=== PATIENT | female | born 1995 ===

== ENCOUNTER → 2018-09-24 02:55 | Observation (INO) ==
[2018-09-24 00:09] LABS: Bilirubin,Urine Negative (Negative); Blood,Urine Negative (Negative); Clarity,Urine Cloudy (Clear); Color,Urine Yellow (Yellow); Glucose,Urine (UA) Normal (Normal); Ketones,Urine Negative (Negative); Leukocyte Esterase,Urine Negative (Negative); Nitrite,Urine Negative (Negative); Protein,Urine Negative (Neg-Trace); Specific Gravity,Urine 1.011 (1.010-1.025); Urobilinogen,Urine Normal (Normal)
[2018-09-24 00:11] LABS: Bacteria,Urine Few per hpf (None-Few); Hyaline Casts,Urine None Seen per lpf (None-Few); RBC,Urine 0-3 per hpf (0-3); Squamous Epithelial Cell,Urine Many per lpf (None-Few); WBC,Urine 0-3 per hpf (0-3)
[2018-09-24 00:13] LABS: Amphetamine Screen,Urine Negative ng/mL (Cutoff=1000); Barbiturate Screen,Urine Negative ng/mL (Cutoff=200); Benzodiazepines Screen,Urine Negative ng/mL (Cutoff=200); Cannabinoid Screen,Urine Negative ng/mL (Cutoff = 50); Cocaine Screen,Urine Negative ng/mL (Cutoff= 300); Opiate Screen,Urine Negative ng/mL (Cutoff=300); Phencyclidine Screen,Urine Negative ng/mL (Cutoff=25)
[~2018-09-24 02:55] MED LIST: hydrOXYzine pamoate 25 MG CAPSULE PO ONE
--- NOTE | 2018-10-01 07:53 | Discharge Summary ---
Date of Encounter: 09/24/18 Time of Encounter: 02:00 - Discharge Diagnosis (1) 36 weeks gestation of Priority: Primary Status: Acute Comments: Admit to observation for labor evaluation (2) NST (non-stress test) reactive Priority: Secondary Status: Acute Comments: FHR 135 bpm, moderate variability, +15 x 15 accelerations, no decelerations. (3) False labor Priority: Secondary Status: Acute Comments: Irregular contractions noted, no cervical change in greater than 2 hours. - Discharge Medications Prescriptions: No Action Aspirin [Lo-Dose Aspirin EC] 81 mg PO DAILY Vits96/Iron Fum/Folic [ Tablet] 1 each PO DAILY Home Medications: Aspirin [Lo-Dose Aspirin EC] 81 mg PO DAILY 09/23/18 [History] Vits96/Iron Fum/Folic [ Tablet] 1 each PO DAILY 09/23/18 [History] Allergies/Adverse Reactions: Allergy/AdvReac Type Severity Reaction Status Date / Time No Known Allergies Allergy Verified 09/23/18 23:36 Data Procedures and tests throughout hospitalization: Laboratory Tests 09/23/18 09/23/18 23:48 23:48 Urine Color Yellow Urine Clarity Cloudy A Urine pH 7.0 Ur Specific Woodman 1.011 Urine Protein Negative Urine Glucose (UA) Normal Urine Ketones Negative Urine Blood Negative Urine Nitrite Negative Urine Bilirubin Negative Urine Urobilinogen Normal Ur Leukocyte Esterase Negative Urine Microscopic RBC 0-3 Urine Microscopic WBC 0-3 Ur Squamous Epith Cells Many H Urine Bacteria Few Hyaline Casts None Seen Urine Opiates Screen Negative Ur Buprenorphine Scrn Negative Ur Barbiturates Screen Negative Ur Phencyclidine Scrn Negative Ur Amphetamines Screen Negative U Benzodiazepines Scrn Negative Urine Cocaine Screen Negative U Marijuana (THC) Screen Negative Ur Drug Screen Interp See Below Date of admission: 09/23/18 23:29 Primary care physician: Lilo Bundy, Discharging clinician: Emili Sam Anticipated date of discharge: 09/24/18 - Patient Status Disposition: Home, Self-Care Condition: Good Functional capacity at discharge: independent ambulation Overall status at discharge: patient is progressing back to baseline - Discharge Instructions Follow Up With: Lilo Bundy CNP [Primary Care Provider] - Additional Instructions: Keep regular scheduled OB appointment. LABOR AND DELIVERY DISCHARGE INSTRUCTIONS Signs and Symptoms to be Reported to your Doctor Immediately: * Sudden gush, continuous or intermittent lead of fluid from vagina (note the time of gush and color of fluid) * Onset of bright red vaginal bleeding with or without pain (if you had a vaginal exam during this visit you may notice some dark red spotting. This is normal.) * Lower abdominal cramping or backache that is premenstrual-like feeling. * More than 6 contractions in one hour. * Burning during urination, having to urinate more frequently or pain in your mid-back. * A change in the baby's activity. This could be an increase or decrease in activity. * Severe headache which does not go away with tylenol. * Sudden swelling in the face, hands, arms and/or legs. * Upper abdominal pain - sometimes associated with heartburn or nausea and is not relieved by Maalox, Mylanta or Tums. * Dizziness or blurred vision or visual disturbances (seeing stars/lights). * Kick Counts One hour after a meal, lay down on one side in a quiet place. Count the number of maria eugenia the baby moves during an hour. If less than 6 movements, notify your physician. Diet: *Force fluids - 8-10 tall glasses of fluid per day. May include popsicles and jello. 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 She does report positive movement, denies vaginal bleeding and leakage of fluid. She was found to be ricky irregularly throughout her stay. Fetus has a reactive strip. Cervix on arrival was 1-2 cm and she had no warp changer greater than 2 hours. She has an appointment to see her OB care provider, Dr. Mujica, this morning at 9:15. Patient is instructed to keep that appointment and return for any further signs of labor. Time Attestation: Total time spent providing and/or coordinating discharge services: Time Spent: Less than 30 minutes Exam - Constitutional General appearance IM: A&O X 3, no acute distress - Respiratory Respiratory exam: Absent: respiratory distress - Cardiovascular Cardiovascular exam IM: Absent: irregular rhythm - GI/Abdominal GI/Abdominal exam IM: normal bowel sounds - Rectal Rectal exam: deferred - Extremities Exam Extremities exam IM: Absent: calf tenderness - Neurological Exam Neurological exam: alert, normal gait, oriented X3 - VTE Reasons for not Prescribing Prophylaxis: Treatment not Indicated - Low risk for VTE
== END | disposition home or self-care (01) ==
LOC: 1NENULAB
PROVIDERS: ADMIT Registered Nurse; ATTEND Registered Nurse

== ENCOUNTER 2018-10-11 07:56 | Inpatient (IN) ==
[2018-10-11] MEDS ORDERED: Ringers Solution, Lactated 1,000 ML ONE ×2 (08:16→17:50)
--- NOTE | 2018-10-11 08:18 | OB/GYN History & Physical ---
Date of Encounter: 10/11/18 Time of Encounter: 08:12 Assessment and Plan (1) 38 weeks gestation of Current visit: Yes Status: Acute admitted for deliver (2) Spontaneous onset of labor Current visit: Yes Status: Acute admit for delivery epidural when desires History of Present Illness Chief complaint: Spontaneous labor HPI: Ms. Stubbs is a 23 year old female @ 38w4d presents to labor and delivery with complaints of contractions that started around 0400. Patient denies LOF or VB. Patient reports good movement. Patient denies any complications with current . Patient states she had preeclampsia after her last delivery. Blood type:O+ Rubella: Immune Hep B:Nonreactive GBS: Negative Past Med Surg Social Fam HX - Past Medical History Source: patient Medical history: no medical history Psychiatric history: no psych history - Past Surgical History Additional surgical history: tonsil - Social History Smoking Status: Former smoker Smokeless Tobacco Status: No Alcohol use: none Drug use: none Current living situation: Home - Independent Activity Level: Independent ambulation Recent Out of Country Travel Within the Last 8 Weeks: No Exposure or Possible Exposure to Illness During Travel: No - Family History Father Living Status: Still Living Hx Family Cardiac Disorders: Yes (HTN) Hx Family Respiratory Disorders: No Hx Family Cancer: No Hx Family GI Disorders: No Hx Family Endocrine Disorder: No Hx Family Neuromuscular Disorders: No Hx Family Neurologic Disorders: No Hx Family HEENT Disorders: No Hx Family Autoimmune Disorders: No Obstetrical History - Pregnancies : 3 Para: 1 Term: 1 : 0 Ab's: 1 Livin Medications and Allergies Aspirin [Lo-Dose Aspirin EC] 81 mg PO DAILY 09/23/18 [History] Vits96/Iron Fum/Folic [ Tablet] 1 each PO DAILY 09/23/18 [Hist ory] Allergy/AdvReac Type Severity Reaction Status Date / Time No Known Allergies Allergy Verified 10/04/18 00:40 Review of System OB - Constitutional Constitutional ROS IM: no chills, no fatigue, no headache(s) - Cardiovascular Cardiovascular: no chest pain, no edema, no paroxysmal nocturnal dyspnea, no pedal edema - Respiratory Respiratory: no cough, no dyspnea - Gastrointestinal Gastrointestinal: no abdominal pain, no heartburn, no nausea, no vomiting - Genitourinary Genitourinary: no abnormal vaginal bleeding, no dysuria, no flank pain, no urinary hesitancy, no urinary urgency, no vaginal discharge, no vaginal odor, no vaginal pruritis Exam - Constitutional Constitutional: well developed, well nourished, no acute distress, average body habitus - HEENT HEENT: Normocephaly, Mucus Membranes Moist - Neck Neck exam: full ROM, supple - Lungs Respiratory exam: CTAB - Cardiovascular Cardiovascular exam: RRR, +S1, +S2 - Abdomen Abdomen: Present: bowel sounds normal, gravid, non tender - Extremities Extremities exam: full ROM, normal inspection Deep Tendon Reflex Grade: 2+ Normal - Cervix Dilation: 7 Effacement: 100 Station: 0 - Uterus Uterus exam: Present: normal size, normal contour - Anus/Rectum Anus/Rectum: Present: normal perianal skin - Comments Comments: FHR 135 bpm moderate variability +15x15 accels no decels noted. Contractions 2-3 min apart. Cat. 1 tracing Results All other labs normal.
[2018-10-11] MEDS ORDERED: Famotidine 20 MG/2 ML VIAL IVP PRN (08:22)
[2018-10-11] MEDS ORDERED: *HR* Nalbuphine 10 MG/ML AMPUL IVP PRN (08:22)
[2018-10-11] MEDS ORDERED: Naloxone 0.4 MG/ML INJ IVP PRN ×2 (08:22→08:23)
[2018-10-11] MEDS ORDERED: Ondansetron 4 MG/2 ML VIAL IVP PRN ×2 (08:22→08:23)
[2018-10-11] MEDS ORDERED: Metoclopramide 10 MG/2 ML VIAL IVP PRN (08:22)
[2018-10-11] MEDS ORDERED: Ropivacaine/PF 0.2% 20 ML VIAL EP ONE (08:23)
[2018-10-11] MEDS ORDERED: *HR* FentaNYL (PF) 100 MCG/2 ML VIAL EP ONE (08:23)
[2018-10-11] MEDS ORDERED: EPHEDrine 50 MG/ML VIAL IVP PRN (08:23)
--- NOTE | 2018-10-11 08:27 | Anesthesia Evaluation PreOp ---
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 Other Medical History: Denies Any Significant HX Anesthesia History: No Prior Anesthetic Complications, Past Anesthesia (previous epidural) : Yes Alcohol Use: none Drug use: none Medications and Allergies Aspirin [Lo-Dose Aspirin EC] 81 mg PO DAILY 09/23/18 [History] Vits96/Iron Fum/Folic [ Tablet] 1 each PO DAILY 09/23/18 [History] Allergy/AdvReac Type Severity Reaction Status Date / Time No Known Allergies Allergy Verified 10/04/18 00:40 - Meds/Allergy Pre-op Review Medications Reviewed: Yes Allergies Reviewed: Yes Beta Blockers on Current Med List: No Anesthesia Exam BP 149/108 P 89 R 18 T 98.0 Height: 5'0" Weight: 147" NPO (# of Hours): 4 Pain Scale: 8 Pain Scale Used: Numeric (1 - 10) - HEENT Pupil (Motor): Pupils equal Mallampati: II Teeth: Normal Oral Opening: Greater than 3 - RADIO ENGINEER LOC: Oriented RADIO ENGINEER Motor: Normal RUE, Normal LUE, Normal RLE, Normal LLE, Normal Face RADIO ENGINEER Sensory: Normal: RUE, LUE, RLE, LLE, Face - Cardiac Rhythm: Regular Murmur: None JVD: No Carotid Bruit: No - Pulmonary Breath Sounds: bilateral Clear Respiratory Effort: Symmetrical Anesthesia Assess/Plan ASA Score: 2 Level of consciousness: Cooperative, Oriented, Tranquil Anesthetic Plan: Epidural Autologous Blood: No Monitoring Plan: Standard Monitors Recovery Plan: Other
[2018-10-11] MEDS ORDERED: Ringers Solution, Lactated 1,000 ML IVC SCH (08:30)
[2018-10-11] MEDS ORDERED: Epidural Premix (fent/bupiv) 110 ML EP SCH (08:30)
[2018-10-11 08:37] LABS: Basophils % 0.2 %; Eosinophils # 0.1 K/mcL (0.0-0.6); Eosinophils % 0.4 %; Hematocrit 39.1 % (35.3-44.9); Hemoglobin 13.3 g/dL (11.5-15.4); Immature Granulocytes % 0.4 % (0-4); Lymphocytes % 15.8 %; Mean Corpuscular Hemoglobin 28.8 pg (28.0-33.3); Mean Corpuscular Volume 84.6 fL (83.0-100.0); Mean Platelet Volume 12.5 fL (9.4-12.4); Monocytes # 0.9 K/mcL (0.0-1.3); Monocytes % 4.9 %; Neutrophils # 14.8 K/mcL (1.6-8.9); Platelet Count 277 K/mcL (140-400); Red Blood Count 4.62 M/mcL (3.82-4.97); Red Cell Distribution Width 13.1 % (11.5-14.5); Segmented Neutrophils % 78.3 %; White Blood Count 18.9 K/mcL (4.3-11.1)
[2018-10-11 08:56] LABS: Alanine Aminotransferase 20 Units/L (7-52); Aspartate Amino Transferase 20 Units/L (13-39); BUN/Creatinine Ratio 16 (6-26); Blood Urea Nitrogen 9 mg/dL (6-20); Lactate Dehydrogenase 157 Units/L (140-271); Uric Acid 5.7 mg/dL (2.3-7.6); eGFR For African Americans > 60 (> 60); eGFR For Non-African Americans > 60 (> 60)
[2018-10-11 09:12] LABS: Protein/Creatinine Ratio,Urine 0.18 mg/mg (0.00-0.20)
[2018-10-11 09:20] LABS: Amphetamine Screen,Urine Negative ng/mL (Cutoff=1000); Barbiturate Screen,Urine Negative ng/mL (Cutoff=200); Benzodiazepines Screen,Urine Negative ng/mL (Cutoff=200); Cannabinoid Screen,Urine Negative ng/mL (Cutoff = 50); Cocaine Screen,Urine Negative ng/mL (Cutoff= 300); Opiate Screen,Urine Negative ng/mL (Cutoff=300); Phencyclidine Screen,Urine Negative ng/mL (Cutoff=25)
--- NOTE | 2018-10-11 09:36 | Anesthesia Procedures ---
Date of Encounter: 10/11/18 Time of Encounter: 09:05 Procedures: Anesthesia - Epidural/Spinal Patient ID/Chart reviewed: Yes Patient examined: Yes OB Eval: Gestational age: 38.5 OB Eval: : 2 OB Eval: Hx Para: 1 OB Eval: Dilated at (cm): 7 OB Eval: Contractions: Non-stressed pattern Consent Obtained: Yes Supplemental Oxygen: None/Room Air Site Prep: Aseptic Technique, Sterile prep and drape, 0.5% Chlorhexidine/Alcohol Patient position: upright Local Anesthetic: Lidocaine 1% Amount of Local Anesthetic used: 3 Touhy Needle Gauge: 18 Touhy Needle Depth (cm): 6 Catheter Depth at Skin (cm): 12 Test Dose (1.5% Lido + Epi): Volume given (mls): 3 Test Dose Result: Negative Loading Dose: Fentanyl (mcg): 100 Loading Dose: Other: Ropivicaine 0.2% 5ml, 3ml NS Loading Dose Administered: Thru Catheter Infusion Med: 0.125% Bupivacaine w/ 2 mcg/ml Fentanyl Infusion Rate (mls/hr): [address]: Tegaderm, Tape Interspace Used: L3-L4 Loss of Resistance (JUSTO): Yes Blood: No CSF: No Paresthesia: No Procedure: VANESSA placed in upright position 1st pass without complication. JUSTO achieved with normal saline. Catheter threaded with ease to 12cm at the skin. Pt stated comfort folllowing bolus. VSS and FHT stable throughout. Vitals + FHT's: 0905 BP 157/107 P 85 R 18 0925 BP 02114 P 102 R 16 FHT 140s
--- NOTE | 2018-10-11 11:39 | OB Labor Progress Note ---
Date of Encounter: 10/11/18 Time of Encounter: 11:34 Labor Progress Note - Subjective Subjective: patient is comfortable s/p epidural - Vital Signs Vital Signs: VSS - Cervix Cervix: 8cm/100%/0 - Heart Tones Heart Tones: 135/mod ondina/+accels, no decels - [place]: Q2-3 - Interventions Interventions: patient AROM'ed, anticipate
[2018-10-11] MEDS ORDERED: Oxytocin 20 units/ LR 1000 mL 20 UNIT/1,000 ML BAG IVC ONE (13:10)
--- NOTE | 2018-10-11 13:26 | OB/GYN Procedure Note ---
Delivery - Delivery Date: 10/11/18 Provider: Elie Mujica Delivery induction: none Delivery augmentation: rupture of membranes Delivery monitor: external FHT, external uterine Anesthesia: epidural Quantitated Blood Loss: 75 - Repair Episiotomy: none Laceration Description: None - Complications Delivery complications: none - Disposition Mom disposition: stable in LDR disposition: stable in LDR - Comments Comments: Temi is a 23 y/o now who delivered a viable male @ 1:25PM (weight per records), APGARs 9/9. delivered JERALD, cord clamped and cut. Nuchal cord x 1 reduced. Placenta delivered @ 1:27PM. EBL 75ml. No lacerations, mom and doing well.
[2018-10-11] MEDS ORDERED: Magnesium Sulfate 6 GM in 0.9 % Sodium Chloride 100 ML IVPB ONE (14:06)
[2018-10-11 14:57] LABS: Basophils % 0.2 %; Eosinophils % 0.1 %; Hematocrit 36.1 % (35.3-44.9); Hemoglobin 12.2 g/dL (11.5-15.4); Immature Granulocytes % 0.5 % (0-4); Lymphocytes # 2.3 K/mcL (0.6-4.6); Lymphocytes % 10.1 %; Mean Corpuscular HGB Conc 33.8 g/dL (31.6-35.5); Mean Corpuscular Hemoglobin 28.9 pg (28.0-33.3); Mean Corpuscular Volume 85.5 fL (83.0-100.0); Monocytes % 4.3 %; Neutrophils # 19.4 K/mcL (1.6-8.9); Platelet Count 230 K/mcL (140-400); Red Blood Count 4.22 M/mcL (3.82-4.97); Red Cell Distribution Width 13.2 % (11.5-14.5); Segmented Neutrophils % 84.8 %; White Blood Count 22.9 K/mcL (4.3-11.1)
[2018-10-11 15:02] LABS: Protein/Creatinine Ratio,Urine 0.34 mg/mg (0.00-0.20)
[2018-10-11 15:12] LABS: Alanine Aminotransferase 17 Units/L (7-52); Aspartate Amino Transferase 17 Units/L (13-39); BUN/Creatinine Ratio 15 (6-26); Blood Urea Nitrogen 7 mg/dL (6-20); Lactate Dehydrogenase 138 Units/L (140-271); Uric Acid 5.4 mg/dL (2.3-7.6); eGFR For African Americans > 60 (> 60); eGFR For Non-African Americans > 60 (> 60)
[2018-10-11] MEDS ORDERED: Calcium Gluconate 1,000 MG/10 ML VIAL IV PRN ×2 (16:26→18:36)
[2018-10-11] MEDS ORDERED: Magnesium Sulfate 20 gm/500mL 20 GM/500 ML IV.SOLN IVC SCH ×2 (16:30→18:45)
[2018-10-11] MEDS ORDERED: Calcium Gluconate 1,000 MG/10 ML VIAL ONE (16:43)
[2018-10-11] MEDS ORDERED: Rho Immune Globulin 1,500 UNIT SYRINGE IM PRN (17:21)
[2018-10-11] MEDS ORDERED: Measles/Mumps/Rubella Vacc 0.5 ML VIAL SQ PRN (17:21)
[2018-10-11] MEDS ORDERED: Oxytocin 20 units/ LR 1000 mL 20 UNIT/1,000 ML BAG IVC SCH (17:21)
[2018-10-11] MEDS: Ibuprofen 600 MG TABLET PO PRN (18:47)
[2018-10-12] MEDS ORDERED: Ringers Solution, Lactated 1,000 ML ONE ×2 (01:01→09:35)
[2018-10-12] MEDS: Ibuprofen 600 MG TABLET PO PRN ×3 (02:58→12:55)
[2018-10-12] MEDS: Prenatal Vit/FA 1 EACH TABLET PO SCH (08:08)
[2018-10-12 08:39] LABS: Basophils % 0.2 %; Eosinophils # 0.1 K/mcL (0.0-0.6); Eosinophils % 0.8 %; Hematocrit 37.2 % (35.3-44.9); Hemoglobin 12.4 g/dL (11.5-15.4); Immature Granulocytes % 0.6 % (0-4); Lymphocytes # 2.3 K/mcL (0.6-4.6); Lymphocytes % 13.9 %; Mean Corpuscular HGB Conc 33.3 g/dL (31.6-35.5); Mean Corpuscular Volume 86.9 fL (83.0-100.0); Mean Platelet Volume 11.4 fL (9.4-12.4); Monocytes # 0.7 K/mcL (0.0-1.3); Monocytes % 4.4 %; Neutrophils # 13.4 K/mcL (1.6-8.9); Platelet Count 231 K/mcL (140-400); Red Blood Count 4.28 M/mcL (3.82-4.97); Red Cell Distribution Width 13.3 % (11.5-14.5); Segmented Neutrophils % 80.1 %; White Blood Count 16.7 K/mcL (4.3-11.1)
[2018-10-12] MEDS ORDERED: Prenatal Vit/FA 1 EACH TABLET PO SCH (09:00)
--- NOTE | 2018-10-12 09:07 | OB/GYN Progress Note ---
Date of Encounter: 10/12/18 Time of Encounter: 09:05 - Assessment and Plan (1) Status post vaginal delivery Current Visit: Yes Status: Acute (2) Pre-eclampsia affecting puerperium Current Visit: Yes Status: Acute . Magnesium sulfate at 24 hours if blood pressure remains elevated. Labetalol plan is to discharge home tomorrow if stable Subjective - Subjective Interval history: The patient is doing well this morning states does have a slight headache states whenever she never eats she will get this headache. She is only on a liquid diet at this time. Will advance to regular. Patient's magnesium sulfate is due to come off at around noon. At that time catheter will come out along with IV we will then continue to watch her for 24 hours is stable for discharge home. At this point will hold off on the antihypertensives unless blood pressure elevates after magnesium was stopped. Baby is doing well bleeding has slowed down. Patient reports: appetite normal, pain well controlled, ambulating normally : in NICU Objective - Latest Vital Signs Latest vital signs: Vital Signs Temp Pulse Resp BP Pulse Ox 10/12/18 08:00 97.5 F L 84 20 117/83 99 10/12/18 07:00 94 16 135/96 10/12/18 06:00 80 15 126/89 10/12/18 05:10 98.0 F 79 14 124/84 100 10/12/18 05:00 79 14 124/84 10/12/18 04:00 93 17 135/94 10/12/18 03:02 95 15 135/91 10/12/18 02:00 87 15 127/87 10/12/18 01:00 90 15 123/85 10/12/18 00:00 93 16 141/99 10/11/18 23:00 83 16 137/97 10/11/18 21:57 93 15 138/95 10/11/18 21:00 98.5 F 10/11/18 20:55 97 16 119/83 10/11/18 19:57 107 15 132/81 10/11/18 19:05 120 14 122/84 10/11/18 18:19 121 14 135/96 10/11/18 18:00 97.4 F L 121 14 135/96 96 10/11/18 17:00 97.7 F 106 14 135/91 98 10/11/18 16:33 97.7 F 116 16 148/92 Intake and Output 10/11/18 10/12/18 10/12/18 23:59 07:59 15:59 Intake Total 1880 / 1880 Output Total 4200 / 4650 4650 / 4900 250 / 4900 Balance -4200 / -4650 -2770 / -3020 -250 / -3020 Intake: Oral 0 / 1880 Output: Urine 3650 / 4100 4650 / 4650 Catheter 550 / 550 250 / 250 Other: Meal Dinner Percent of Meal Consumed 100% - Exam Lungs: bilateral: normal Chest: Normal S1, Normal S2 Extremities: Present: normal Abdomen: Present: normal appearance, soft Uterus: Present: normal, firm Uterus Position: At Umbilicus - Labs Labs: Laboratory Results - last 24 hr 10/11/18 10/11/18 10/11/18 08:40 08:40 14:35 WBC 22.9 H RBC 4.22 Hgb 12.2 Hct 36.1 MCV 85.5 MCH 28.9 MCHC 33.8 RDW 13.2 Plt Count 230 MPV 12.0 Immature Gran % 0.5 Seg Neutrophils % 84.8 Lymphocytes % 10.1 Monocytes % 4.3 Eosinophils % 0.1 Basophils % 0.2 Neutrophils # 19.4 H Lymphocytes # 2.3 Monocytes # 1.0 Eosinophils # 0.0 Basophils # 0.0 BUN Creatinine Est GFR ( Amer) Est GFR (Non-Af Amer) BUN/Creatinine Ratio Uric Acid AST ALT Lactate Dehydrogenase Urine Creatinine 63 Protein/Creatinin Ratio 0.18 Urine Total Protein 11 Urine Opiates Screen Negative Ur Buprenorphine Scrn Negative Ur Barbiturates Screen Negative Ur Phencyclidine Scrn Negative Ur Amphetamines Screen Negative U Benzodiazepines Scrn Negative Urine Cocaine Screen Negative U Marijuana (THC) Screen Negative 10/11/18 10/11/18 10/12/18 14:35 14:35 08:18 WBC 16.7 H RBC 4.28 Hgb 12.4 Hct 37.2 MCV 86.9 MCH 29.0 MCHC 33.3 RDW 13.3 Plt Count 231 MPV 11.4 Immature Gran % 0.6 Seg Neutrophils % 80.1 Lymphocytes % 13.9 Monocytes % 4.4 Eosinophils % 0.8 Basophils % 0.2 Neutrophils # 13.4 H Lymphocytes # 2.3 Monocytes # 0.7 Eosinophils # 0.1 Basophils # 0.0 BUN 7 Creatinine 0.48 L Est GFR ( Amer) > 60 Est GFR (Non-Af Amer) > 60 BUN/Creatinine Ratio 15 Uric Acid 5.4 AST 17 ALT 17 Lactate Dehydrogenase 138 L Urine Creatinine 65 Protein/Creatinin Ratio 0.34 H Urine Total Protein 22 H Urine Opiates Screen Ur Buprenorphine Scrn Ur Barbiturates Screen Ur Phencyclidine Scrn Ur Amphetamines Screen U Benzodiazepines Scrn Urine Cocaine Screen U Marijuana (THC) Screen
[2018-10-13] MEDS ORDERED: *HR* Labetalol 20 MG/4 ML SYRINGE IVP ONE (08:23)
[2018-10-13] MEDS: Prenatal Vit/FA 1 EACH TABLET PO SCH (08:50)
[2018-10-13] MEDS ORDERED: NIFEdipine XL (24 HR) 60 MG TAB.ER.24 PO SCH (09:00)
[2018-10-13 12:41] VITALS: BP 150/94
--- NOTE | 2018-10-13 13:36 | OB/GYN Progress Note ---
Date of Encounter: 10/13/18 Time of Encounter: 13:33 - Assessment and Plan (1) Severe preeclampsia Current Visit: Yes Status: Acute Status post 24 hours of magnesium sulfate . Continue 200 mg of labetalol 3 times a day and 60 mg of Procardia XL. Continue to monitor blood pressures and adjust medication as needed. Patient requests discharge home this evening if "blood pressures are good today". We discussed maintaining inpatient management to confirm oral antihypertensive regimen is appropriate. Anticipate discharge home tomorrow. Qualifiers: Trimester: third trimester Qualified Code(s): O14.13 - Severe pre- eclampsia, third trimester (2) Breast feeding status of mother Current Visit: Yes Status: Acute Encouraged breast feed when necessary (3) Status post vaginal delivery Current Visit: Yes Status: Acute Pain management as needed. Anticipate discharge home tomorrow. Continue routine care. Subjective - Subjective Principal diagnosis: S/p Interval history: She is status post 24 hours of magnesium sulfate . Her blood pressure was elevated this morning at 173/115 with a repeat of 184/111. She was started on 200 mg of labetalol 3 times a day. She is currently breast-feeding her male . Her pain is controlled on oral medications. She uses 1-2 pads overnight, no clots. She is tolerating a regular diet. She denies any current dysuria, nausea, vomiting, chest pain, shortness of breath, fever, chills, headaches, vision changes, right upper quadrant/epigastric pain or other compl aints today. Patient reports: appetite normal, voiding normally, pain well controlled, ambulating normally Free [place]il: doing well, nursing well Objective - Latest Vital Signs Latest vital signs: Vital Signs Temp Pulse Resp BP Pulse Ox 10/13/18 12:40 150/94 10/13/18 09:10 166/90 10/13/18 08:25 97.9 F 67 16 173/115 99 10/13/18 06:03 71 144/97 10/13/18 04:00 98.3 F 68 16 165/99 99 10/12/18 23:10 98.3 F 98 16 144/94 99 10/12/18 21:46 157/115 10/12/18 21:45 97.9 F 66 16 160/108 100 10/12/18 15:26 97.5 F L 88 20 131/91 98 Intake and Output 10/12/18 10/13/18 10/13/18 23:59 07:59 15:59 Intake Total 640 / 3160 240 / 240 Output Total 1400 / 8000 900 / 900 Balance -760 / -4840 -660 / -660 Intake: Oral 240 / 2360 240 / 240 Free Water 400 / 800 Output: Urine 1400 / 7750 900 / 900 Other: Meal Dinner Percent of Meal Consumed 100% Weight 62.686 kg Patient Weight 10/13/18 23:59 Weight 62.686 kg - Exam Lungs: bilateral: normal Chest: Normal S1, Normal S2 Extremities: Present: normal Abdomen: Present: normal appearance, soft Uterus: Present: normal, firm
--- NOTE | 2018-10-13 14:40 | Discharge Summary ---
Date of Encounter: 10/13/18 Time of Encounter: 14:39 - Discharge Diagnosis (1) Severe preeclampsia Priority: Primary Status: Acute Comments: She is status post 24 hours of magnesium sulfate . Her blood pressure this morning was 173/115 with a repeat of 184/111. Procardia 60 mg extended release by mouth and labetalol 20 mg IV push were given. Her subsequent blood pressures were 144-166 systolic and 84-94 diastolic. Her blood pressure prior to discharge was 144/84. Qualifiers: Trimester: third trimester Qualified Code(s): O14.13 - Severe pre- eclampsia, third trimester (2) Breast feeding status of mother Priority: Secondary Status: Acute (3) Status post vaginal delivery Priority: Secondary Status: Acute - Discharge Medications Prescriptions: New NIFEdipine XL (24 HR) [Procardia XL] 60 mg PO DAILY 14 Days tab.er.24 Labetalol [Trandate] 200 mg PO TID 14 Days tablet Continued Vits96/Iron Fum/Folic [ Tablet] 1 each PO DAILY Home Medications: Vits96/Iron Fum/Folic [ Tablet] 1 each PO DAILY 09/23/18 [History] Labetalol [Trandate] 200 mg PO TID 14 Days tablet 10/13/18 [Rx] NIFEdipine XL (24 HR) [Procardia XL] 60 mg PO DAILY 14 Days tab.er.24 10/13/18 [Rx] Allergies/Adverse Reactions: Allergy/AdvReac Type Severity Reaction Status Date / Time No Known Allergies Allergy Verified 10/04/18 00:40 Data Procedures and tests throughout hospitalization: Laboratory Tests 10/11/18 10/11/18 10/11/18 08:10 08:10 08:10 WBC 18.9 H RBC 4.62 Hgb 13.3 Hct 39.1 MCV 84.6 MCH 28.8 MCHC 34.0 RDW 13.1 Plt Count 277 MPV 12.5 H Immature Gran % 0.4 Seg Neutrophils % 78.3 Lymphocytes % 15.8 Monocytes % 4.9 Eosinophils % 0.4 Basophils % 0.2 Neutrophils # 14.8 H Lymphocytes # 3.0 Monocytes # 0.9 Eosinophils # 0.1 Basophils # 0.0 BUN 9 Creatinine 0.58 L Est GFR ( Amer) > 60 Est GFR (Non-Af Amer) > 60 BUN/Creatinine Ratio 16 Uric Acid 5.7 AST 20 ALT 20 Lactate Dehydrogenase 157 Urine Creatinine Protein/Creatinin Ratio Urine Total Protein Urine Opiates Screen Ur Buprenorphine Scrn Ur Barbiturates Screen Ur Phencyclidine Scrn Ur Amphetamines Screen U Benzodiazepines Scrn Urine Cocaine Screen U Marijuana (THC) Screen Ur Drug Screen Interp Specimen Rejected Labelling 10/11/18 10/11/18 10/11/18 08:40 08:40 14:35 WBC 22.9 H RBC 4.22 Hgb 12.2 Hct 36.1 MCV 85.5 MCH 28.9 MCHC 33.8 RDW 13.2 Plt Count 230 MPV 12.0 Immature Gran % 0.5 Seg Neutrophils % 84.8 Lymphocytes % 10.1 Monocytes % 4.3 Eosinophils % 0.1 Basophils % 0.2 Neutrophils # 19.4 H Lymphocytes # 2.3 Monocytes # 1.0 Eosinophils # 0.0 Basophils # 0.0 BUN Creatinine Est GFR ( Amer) Est GFR (Non-Af Amer) BUN/Creatinine Ratio Uric Acid AST ALT Lactate Dehydrogenase Urine Creatinine 63 Protein/Creatinin Ratio 0.18 Urine Total Protein 11 Urine Opiates Screen Negative Ur Buprenorphine Scrn Negative Ur Barbiturates Screen Negative Ur Phencyclidine Scrn Negative Ur Amphetamines Screen Negative U Benzodiazepines Scrn Negative Urine Cocaine Screen Negative U Marijuana (THC) Screen Negative Ur Drug Screen Interp See Below Specimen Rejected 10/11/18 10/11/18 10/12/18 14:35 14:35 08:18 WBC 16.7 H RBC 4.28 Hgb 12.4 Hct 37.2 MCV 86.9 MCH 29.0 MCHC 33.3 RDW 13.3 Plt Count 231 MPV 11.4 Immature Gran % 0.6 Seg Neutrophils % 80.1 Lymphocytes % 13.9 Monocytes % 4.4 Eosinophils % 0.8 Basophils % 0.2 Neutrophils # 13.4 H Lymphocytes # 2.3 Monocytes # 0.7 Eosinophils # 0.1 Basophils # 0.0 BUN 7 Creatinine 0.48 L Est GFR ( Amer) > 60 Est GFR (Non-Af Amer) > 60 BUN/Creatinine Ratio 15 Uric Acid 5.4 AST 17 ALT 17 Lactate Dehydrogenase 138 L Urine Creatinine 65 Protein/Creatinin Ratio 0.34 H Urine Total Protein 22 H Urine Opiates Screen Ur Buprenorphine Scrn Ur Barbiturates Screen Ur Phencyclidine Scrn Ur Amphetamines Screen U Benzodiazepines Scrn Urine Cocaine Screen U Marijuana (THC) Screen Ur Drug Screen Interp Specimen Rejected Date of admission: 10/11/18 07:56 Primary care physician: Lilo Bundy, Consults: 10/11/18 17:21 Consult to Massage Therapy Instructor [CONS] Routine Comment: Vaginal delivery, consult needed Discharging clinician: Naima Araujo (Against Medical Advice) Anticipated date of discharge: 10/13/18 - Patient Status Disposition: Home, Self-Care Condition: Serious Functional capacity at discharge: independent ambulation Overall status at discharge: patient is progressing back to baseline - Discharge Instructions Instructions: Preeclampsia and Eclampsia (DC) Follow Up With: Lilo Bundy CNP [Primary Care Provider] - Elie Mujica MD [Partnered Physician] - Hospital Course Reason for admission: induction of labor Delivery: Episiotomy: none Other procedures: none complications: other (Preeclampsia was severe features not well controlled on oral medications) Discharge diagnosis: pre-eclampsia (Preeclampsia with severe features) baby: male Hospital course: After discontinuation of magnesium sulfate her blood pressures continued to spike. On day #2 she requested to leave AGAINST MEDICAL ADVICE. This was after she required IV push medication in the morning and initiation of 60 mg of Procardia in an attempt to control her elevated blood pressures. We had a discussion about the need to monitor blood pressures for 24 hours on an oral regimen to ensure it was effective. She verbalized understanding at that time. She also verbalized her concern and anxiety related to being inpatient for management as opposed to being at home. She is aware that her concern for elevated pressures, and appropriate oral medication control, is a risk of maternal stroke, seizures and up to and including maternal . She verbalized understanding and continued to request to leave. Time Attestation: Total time spent providing and/or coordinating discharge services: Time Spent: Less than 30 minutes Specific discharge activities: Severe features precautions given. Return to baseline activity. Exam - Constitutional Vitals: Temp Pulse Resp BP Pulse Ox 97.9 F 67 16 150/94 99 10/13/18 08:25 10/13/18 08:25 10/13/18 08:25 10/13/18 12:40 10/13/18 08:25 General appearance IM: A&O X 3, no acute distress - Respiratory Respiratory exam: Absent: respiratory distress - Cardiovascular Cardiovascular exam IM: Absent: irregular rhythm - GI/Abdominal GI/Abdominal exam IM: normal bowel sounds Incision: normal, dry, intact - Rectal Rectal exam: deferred - Uterine Tone: Firm - Extremities Exam Extremities exam IM: Absent: calf tenderness
== END 2018-10-13 15:29 | disposition home or self-care (01) | DRG 560 ==
LOC: 1NENULAB → OBSVTOIN 07:56 → 1NENUOBS 16:30
PROVIDERS: ADMIT Obstetrics & Gynecology; ATTEND Obstetrics & Gynecology